=== PATIENT | female | born 1955 ===

== ENCOUNTER 2020-12-19 11:31 | Outpatient (CLI) | payer OTHER ==
--- NOTE | 2020-12-19 12:48 | XRay Report ---
BILATERAL HANDS HISTORY: Pain. COMPARISON: None. TECHNIQUE: 3 views of both hands were obtained. FINDINGS: RIGHT HAND:No evidence of acute osseous injury. Mild to moderate osteoarthritic change at the first c arpometacarpal joint and first metacarpophalangeal joint. Corticated ossified fragment distal to the ulnar styloid likely represents the site of remote injury. LEFT HAND: No evidence of acute osseous injury. Mild to moderate osteoarthritic changes at the first carpometacarpal joint. Suspected diffuse mild osteopenia. IMPRESSION: No evidence of acute osseous injury. Bilateral mild to moderate osteoarthritic changes which are primarily in the first carpometacarpal palak ints bilaterally and to a lesser extent right first metacarpophalangeal joint.. Signer Name: Sean Billings MD Signed: 12/19/2020 12:44 PM Workstation Name: [id number]
== END 2020-12-19 11:32 | disposition home or self-care (01) ==
LOC: XRAY 11:31
PROVIDERS: ATTEND Internal Medicine
DX: M19.042 Primary osteoarthritis, left hand (principal); M19.041 Primary osteoarthritis, right hand